=== PATIENT | male | born 1950 | race Caucasian/White ===

== ENCOUNTER 2019-05-03 05:36 | Inpatient (IN) | payer MEDICARE, BC ==
[2019-05-01 10:04] LABS: BASOPHILS # (AUTO) 0.01 x10^3/uL (0-0.1); BASOPHILS % (AUTO) 0 % (0-1); EOSINOPHILS # (AUTO) 0.03 x10^3/uL (0-0.4); EOSINOPHILS % (AUTO) 1 % (1-7); LYMPHOCYTES # (AUTO) 0.95 x10^3/uL (1-3.4); LYMPHOCYTES % (AUTO) 17 % (22-44); MD NO; MEAN CORPUSCULAR HEMOGLOBIN 30.1 pg (27.5-34.5); MEAN CORPUSCULAR HGB CONC 32.9 g/dL (33.2-36.2); MEAN CORPUSCULAR VOLUME 91.5 fL (81-97); MEAN PLATELET VOLUME 7.3 fL (7.4-10.4); MONOCYTES # (AUTO) 0.36 x10^3/uL (0.2-0.8); MONOCYTES % (AUTO) 7 % (2-9); NEUTROPHILS # (AUTO) 4.11 x10^3/uL (1.8-6.8); NEUTROPHILS % (AUTO) 75 % (42-75); PLATELET COUNT 221 x10^3/uL (130-400); RED BLOOD COUNT 5.39 x10^6/uL (4.38-5.82); RED CELL DISTRIBUTION WIDTH 13.2 % (9.4-14.8)
[2019-05-01 10:15] LABS: ALANINE AMINOTRANSFERASE 43 U/L (12-78); ALBUMIN 4.3 g/dL (3.4-5.0); ANION GAP 3 mmol/L (5-15); CALCIUM 9.3 mg/dL (8.5-10.1); CHLORIDE 109 mmol/L (98-107); CREATININE 1.05 mg/dL (0.7-1.3)
[2019-05-01 10:17] LABS: ALKALINE PHOSPHATASE 91 U/L (45-117); BILIRUBIN,TOTAL 0.6 mg/dL (0.2-1.0); TOTAL PROTEIN 7.3 g/dL (6.4-8.2)
[~2019-05-03] VITALS: Ht 170.2 cm; Wt 87.0 kg
[~2019-05-03 05:36] MED LIST: AMLO5TAB4 PO; ATOR10TA PO; LISI-468 PO; SPIR25TA PO
[2019-05-03 06:10] VITALS: BP 154/68
[2019-05-03] MEDS ORDERED: EPINEPHRINE 1 MG/ML, 1ML ONE (06:55)
[2019-05-03] MEDS ORDERED: OPIUM/BELLADONNA SUPP.RECT 16.2-60 MG ONE (06:55)
[2019-05-03] MEDS ORDERED: THROMBIN 5,000 UNIT VIAL TP ONE (06:55)
[2019-05-03] MEDS ORDERED: BUPIVACAINE/PF 0.25% ONE (06:55)
[2019-05-03] MEDS ORDERED: FENTANYL PF 250 MCG/5ML ONE (06:57)
[2019-05-03] MEDS ORDERED: MIDAZOLAM 1 MG/ML, 2ML ONE (06:57)
[2019-05-03] MEDS ORDERED: PROPOFOL 10 MG/ML, 20ML ONE (06:58)
[2019-05-03] MEDS ORDERED: DEXAMETHASONE 4 MG/ML, 1ML ONE (06:58)
[2019-05-03] MEDS ORDERED: FAMOTIDINE 20 MG TABLET PO ONE (07:00)
[2019-05-03] MEDS ORDERED: ACETAMINOPHEN 500 MG TABLET PO ONE (07:00)
[2019-05-03] MEDS ORDERED: GABAPENTIN 300 MG CAPSULE PO ONE (07:00)
[2019-05-03] MEDS ORDERED: ROCURONIUM 10MG/ML,5ML ONE ×2 (07:00→11:27)
[2019-05-03] MEDS ORDERED: LACTATED RINGERS 1,000 ML IV SCH (07:18)
[2019-05-03] MEDS ORDERED: CEFAZOLIN 1,000 MG ONE ×2 (07:21)
[2019-05-03] MEDS ORDERED: MEPERIDINE/PF 25MG/ML,1ML IVPush PRN (09:00)
[2019-05-03] MEDS ORDERED: ONDANSETRON 2MG/ML, 2ML IV PRN ×2 (09:00→14:30)
[2019-05-03] MEDS ORDERED: HYDROmorphone 2 MG/ML, 1ML IVPush PRN (09:00)
[2019-05-03] MEDS ORDERED: PROMETHAZINE 25 MG/ML, 1ML IV PRN (09:00)
[2019-05-03] MEDS ORDERED: hydrALAzine 20 MG/ML, 1ML IV PRN (09:00)
[2019-05-03] MEDS ORDERED: FENTANYL PF 100 MCG/2ML IV PRN (09:00)
[2019-05-03] MEDS ORDERED: OXYcodone 5 MG/5 ML ORAL.SOL UDC PO PRN (09:00)
[2019-05-03] MEDS ORDERED: LABETALOL 5MG/ML, 20ML IV PRN (09:00)
[2019-05-03] MEDS ORDERED: ONDANSETRON 2MG/ML, 2ML ONE ×2 (11:28→12:31)
[2019-05-03] MEDS ORDERED: GLYCOPYRROLATE 0.2MG/1ML, 5ML ONE (11:33)
[2019-05-03] MEDS ORDERED: NEOSTIGMINE 1 MG/ML, 10ML ONE (11:33)
[2019-05-03] MEDS ORDERED: OXYcodone 5 MG/5 ML ORAL.SOL UDC ONE (12:31)
[2019-05-03] MEDS ORDERED: FENTANYL PF 100 MCG/2ML ONE (12:31)
[2019-05-03] MEDS: ACETAMINOPHEN 500 MG TABLET PO SCH ×2 (14:00→20:03)
[2019-05-03 14:13] VITALS: BP 99/65
[2019-05-03] MEDS ORDERED: OXYcodone IR 5MG TABLET PO PRN (14:30)
[2019-05-03] MEDS ORDERED: morphine SULFATE 10 MG/ML, 1ML IV PRN (14:30)
[2019-05-03] MEDS: D5%-0.45NACL+KCL 20MEQ 1,000 ML IV SCH (17:00)
[2019-05-03 18:38] VITALS: BP 128/70
[2019-05-03] MEDS ORDERED: OPIUM/BELLADONNA SUPP.RECT 16.2-60 MG PR PRN (20:30)
[2019-05-04 00:17] VITALS: BP 105/67
[2019-05-04] MEDS: ACETAMINOPHEN 500 MG TABLET PO SCH ×2 (02:09→08:05)
[2019-05-04] MEDS: D5%-0.45NACL+KCL 20MEQ 1,000 ML IV SCH ×2 (02:11→10:15)
[2019-05-04 03:51] VITALS: BP 114/68
[2019-05-04 05:07] LABS: ANION GAP 4 mmol/L (5-15); CALCIUM 7.9 mg/dL (8.5-10.1); CHLORIDE 109 mmol/L (98-107)
[2019-05-04 05:08] LABS: CREATININE 1.13 mg/dL (0.7-1.3)
[2019-05-04] MEDS ORDERED: ENOXAPARIN 40 MG/0.4 ML SQ SCH (08:00)
[2019-05-04 08:22] VITALS: BP 126/75
[2019-05-04] MEDS ORDERED: HYDR-3240 PO (08:39)
[2019-05-04] MEDS ORDERED: AMLODIPINE 5 MG TABLET PO SCH (09:00)
[2019-05-04] MEDS ORDERED: LISINOPRIL 40 MG TABLET PO SCH (09:00)
[2019-05-04] MEDS ORDERED: SPIRONOLACTONE 25 MG TABLET PO SCH (09:00)
== END 2019-05-04 11:00 | disposition home or self-care (01) | DRG 707 ==
LOC: OUT 05:36 → EDSTATUS 07:30 → 4NE 13:52 → OUT 13:58 → 4NE 13:58 → DCLOUNGE 05-04 10:55
PROVIDERS: ADMIT Urology; ATTEND Urology
PROC: 07BC4ZX Excision of Pelvis Lymphatic, Percutaneous Endoscopic Approach, Diagnostic (ICD-10-PCS; 2019-05-03)
PROC: 8E0W4CZ Robotic Assisted Procedure of Trunk Region, Percutaneous Endoscopic Approach (ICD-10-PCS; 2019-05-03)
PROC: 0VT04ZZ Resection of Prostate, Percutaneous Endoscopic Approach (ICD-10-PCS; principal; 2019-05-03 07:30)
DX: C61 Malignant neoplasm of prostate (principal); R71.0 Precipitous drop in hematocrit; I10 Essential (primary) hypertension
CPT/HCPCS: 36415; 80048; 80053; 85014; 85018; 85025; 86850; 86900; 88305; 88309; 93005; C1729; G0378; J0171; J0690; J1100; J1650; J2250; J2405; J2704; J2710; J3010; J3490; C1760; J3480; J7120

== ENCOUNTER 2019-05-05 22:05 | Emergency (ER) | payer MEDICARE, BC ==
[~2019-05-05] VITALS: Ht 170.2 cm; Wt 82.6 kg
[~2019-05-05 22:05] MED LIST changes: +HYDR-3240 PO
--- NOTE | 2019-05-05 22:40 | NUR ---
C/O SEVERE NAUSEA W/O VOMITING FOR A FEW HOURS TODAY. S/P PROSTATECTOMY ON TUESDAY, HAS INDWELLING SWAIN UNTIL F/U NEXT TUESDAY. PT FELT LIKE HE MAY HAD HAD A FEVER AT HOME, "JUST DON'T FEEL WELL". CONNECTED TO MONITORING. FALL PRECAUTIONS IN PLACE. CALL LIGHT IN REACH. AT BEDSIDE.
--- NOTE | 2019-05-05 22:56 | NUR ---
IV START. LABS DRAWN, 2 SET BLOOD CX DRAWN. PT BACK FROM XRAY.
[2019-05-05] MEDS ORDERED: ONDANSETRON 2MG/ML, 2ML ONE (22:58)
[2019-05-05] MEDS ORDERED: SODIUM CHLORIDE FLUSH 10ML SYR IVF ONE (23:00)
[2019-05-05] MEDS ORDERED: ONDANSETRON 2MG/ML, 2ML IVPush ONE (23:00)
--- NOTE | 2019-05-05 23:01 | NUR ---
MEDS ADMINISTERED PER SEP. UA COLLECTED FOR INDWELLING SWAIN BAG THAT WAS PLACE ON 05/03/19.
[2019-05-05 23:05] LABS: BASOPHILS # (AUTO) 0.02 x10^3/uL (0-0.1); BASOPHILS % (AUTO) 0 % (0-1); EOSINOPHILS # (AUTO) 0.06 x10^3/uL (0-0.4); EOSINOPHILS % (AUTO) 1 % (1-7); LYMPHOCYTES # (AUTO) 0.87 x10^3/uL (1-3.4); LYMPHOCYTES % (AUTO) 15 % (22-44); MD NO; MEAN CORPUSCULAR HEMOGLOBIN 29.9 pg (27.5-34.5); MEAN CORPUSCULAR HGB CONC 32.9 g/dL (33.2-36.2); MEAN CORPUSCULAR VOLUME 90.8 fL (81-97); MEAN PLATELET VOLUME 7.3 fL (7.4-10.4); MONOCYTES # (AUTO) 0.31 x10^3/uL (0.2-0.8); MONOCYTES % (AUTO) 6 % (2-9); NEUTROPHILS # (AUTO) 4.38 x10^3/uL (1.8-6.8); NEUTROPHILS % (AUTO) 78 % (42-75); PLATELET COUNT 177 x10^3/uL (130-400); RED BLOOD COUNT 4.22 x10^6/uL (4.38-5.82); RED CELL DISTRIBUTION WIDTH 13.4 % (9.4-14.8)
[2019-05-05 23:13] LABS: ALBUMIN 3.2 g/dL (3.4-5.0); ANION GAP 7 mmol/L (5-15); CALCIUM 8.7 mg/dL (8.5-10.1); CHLORIDE 109 mmol/L (98-107)
[2019-05-05 23:16] LABS: MICROSCOPIC AUTO
[2019-05-05 23:16] LABS: ALANINE AMINOTRANSFERASE 25 U/L (12-78); ALKALINE PHOSPHATASE 66 U/L (45-117); BILIRUBIN,TOTAL 0.6 mg/dL (0.2-1.0); CREATININE 0.82 mg/dL (0.7-1.3)
[2019-05-05 23:17] LABS: CULTURE INDICATED? YES
--- NOTE | 2019-05-05 23:29 | NUR ---
PT RESTING COMFORTABLY ON GURNEY. NADN. PT STATES ZOFRAN WAS EFFECTIVE. DENIES PAIN.
--- NOTE | 2019-05-05 23:30 | NUR ---
ALL RESULTS ARE BACK AT THIS TIME. CHART UP FOR RECHECK.
[2019-05-06] MEDS ORDERED: CEFTRIAXONE PMX 1GM/50ML 50 ML IV ONE (00:30)
[2019-05-06 01:16] VITALS: BP 121/76
--- NOTE | 2019-05-06 01:17 | NUR ---
patient cleared for discharge. no noting acute distress. patient and verbalized understanding of self care and follow up care at home. patient denies any complications from antibiotic therapy, vital signs stable.
== END 2019-05-06 01:18 | disposition home or self-care (01) ==
LOC: ED 23:34
DX: T83.511A Infection and inflammatory reaction due to indwelling urethral catheter, initial encounter (principal); R11.0 Nausea; Z85.46 Personal history of malignant neoplasm of prostate
CPT/HCPCS: 36415; 74021; 80053; 81001; 83605; 83690; 84145; 85025; 87040; 87086; 96365; 96375; 99284; J0696; J2405